=== PATIENT | male | born 1985 | race Caucasian/White ===

== ENCOUNTER 2022-03-30 10:00 | Emergency (ER) | payer SELFPAY ==
[~2022-03-30] VITALS: Ht 167.6 cm; Wt 64.9 kg
[2022-03-30 10:03] VITALS: BP 145/97
--- NOTE | 2022-03-30 11:06 | NUR ---
No answer in lobby or outside
--- NOTE | 2022-03-30 11:06 | NUR ---
PATIENT LEFT WITHOUT BEING SEEN BY TAVON SULLIVAN. NO FURTHER CARE PROVIDED FOR PATIENT.
--- NOTE | 2022-03-30 12:37 | NUR ---
3RD ATTEMPT CALLED BY PROVIDER NO ANSWER
== END 2022-03-30 11:06 | disposition left against medical advice (07) ==
LOC: MED 10:00
DX: M54.6 Pain in thoracic spine (principal); Z53.21 Procedure and treatment not carried out due to patient leaving prior to being seen by health care provider